=== PATIENT | male | born 1960 | race Caucasian/White ===

== ENCOUNTER 2016-12-13 06:34 | Inpatient (IN) ==
[2016-12-13] MEDS ORDERED: LR 1,000 ML ONE (07:05)
[2016-12-13] MEDS ORDERED: PEPCID ONE (07:05)
[2016-12-13] MEDS ORDERED: REGLAN ONE (07:05)
[2016-12-13] MEDS ORDERED: KEFZOL 2 GM/D5W 2 GM/50 ML IVPB ONE (07:05)
[2016-12-13] MEDS ORDERED: XYLOCAINE-MPF 2% ONE (09:00)
[2016-12-13] MEDS ORDERED: FENTANYL ONE ×2 (09:01→11:25)
[2016-12-13] MEDS ORDERED: VERSED ONE (09:01)
[2016-12-13] MEDS ORDERED: DIPRIVAN 1% ONE (09:02)
[2016-12-13] MEDS ORDERED: ZOFRAN ONE (11:11)
[2016-12-13] MEDS: DILAUDID ONE ×7 (12:30→13:23)
[2016-12-13] MEDS ORDERED: NS 1,000 ML ONE (12:44)
[2016-12-13] MEDS ORDERED: NORCO-10 ONE (14:05)
[2016-12-13] MEDS ORDERED: TORADOL ONE (14:05)
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
[2016-12-13] MEDS: NORCO-10 PO PRN ×2 (16:19→18:56)
[2016-12-13] MEDS: NS 1,000 ML IV SCH (17:00)
[2016-12-13] MEDS: LEVAQUIN PO SCH (18:13)
[2016-12-13] MEDS: KEFZOL 1 GM/D5W 1 GM/50 ML IVPB IV SCH (18:13)
[2016-12-13] MEDS: MORPHINE IV PRN ×2 (19:41→23:42)
[2016-12-13] MEDS ORDERED: NORCO-10 PO PRN (20:40)
[2016-12-13] MEDS ORDERED: PERCOCET-5 PO PRN (20:40)
[2016-12-13] MEDS: PERCOCET-10 PO PRN (21:05)
[2016-12-13] MEDS: KEFLEX PO SCH (21:05)
[2016-12-13] MEDS: PERIDEX MT SCH (21:06)
[2016-12-14] MEDS: PERCOCET-10 PO PRN ×6 (01:21→23:07)
[2016-12-14] MEDS: NS 1,000 ML IV SCH (01:22)
[2016-12-14] MEDS: KEFZOL 1 GM/D5W 1 GM/50 ML IVPB IV SCH ×5 (01:22→17:14)
[2016-12-14] MEDS: MORPHINE IV PRN ×5 (03:49→20:20)
[2016-12-14] MEDS ORDERED: PRILOSEC PO PRN (07:00)
[2016-12-14] MEDS: KEFLEX PO SCH ×5 (08:25→22:29)
[2016-12-14] MEDS: PERIDEX MT SCH ×3 (08:25→23:45)
--- NOTE | 2016-12-14 08:30 | PROGRESS NOTE ---
DATE: 12/14/2016 SUBJECTIVE DATA: The patient is lying in bed in no acute distress. He is complaining of some pain to the left foot. Otherwise, he is doing well. OBJECTIVE DATA: Vital Signs: Temp 98.7; he had no temperature last night. Respirations were 18, pulse is 85, blood pressure is 107/54. He is 96% on room air. Right lower extremity exam: The posterior splint is clean, dry, and intact. There is no obvious drainage. He does still have some erythema to the toes. He can wiggle the toes. He does have good sensation. ASSESSMENT: Status post pinning second and third toes and irrigation and debridement of the great toe. PLAN: We are going to check a CBC and BMP just to get a base lab work on Mr. Wesley. The culture did come back with gram-negative rods. He is currently on Levaquin which will cover the gram-negative rods. Tomorrow, we will take off his dressing and evaluate the surgical site. Dictated by DENNIS Bedoya for Benjamin Ortega MD cc: DENNIS Bedoya MD [facility]
[2016-12-14 08:40] LABS: AGAP 12; BUN 13 mg/dL (8-22); CALCIUM 8.4 mg/dL (8.8-10.2); CHLORIDE 97 mmol/L (98-107); COSMO 276; POTASSIUM 4.2 mmol/L (3.5-5.1); SODIUM 136 mmol/L (136-145); TCO2 27 mmol/L (25-35)
[2016-12-14] MEDS: LEVAQUIN PO SCH (16:34)
[2016-12-15] MEDS: KEFZOL 1 GM/D5W 1 GM/50 ML IVPB IV SCH ×4 (00:59→17:04)
[2016-12-15] MEDS: MORPHINE IV PRN (01:02)
[2016-12-15] MEDS: PERCOCET-10 PO PRN ×5 (03:12→21:03)
[2016-12-15 05:53] LABS: MANUAL DIFF NEEDED? NO
[2016-12-15 05:58] LABS: BASO% 0.1 % (0.0-0.8); EOS# 0.16 X1000 (0.0-0.7); EOS% 2.3 % (0.0-10.0); HEMATOCRIT 42.6 % (42.0-52.0); HEMOGLOBIN 14.1 g/dL (14.0-18.0); IMM GRAN# 0.03 X1000 (0.0-0.04); IMM GRAN% 0.4 % (0.0-0.5); LYMPH# 1.58 X1000 (1.2-3.4); LYMPH% 22.9 % (20.5-51.1); MCH 31.3 PG (27-31); MCHC 33.1 g/dL (33-37); MCV 94.7 FL (81-99); MONO# 0.74 X1000 (0.11-0.59); MONO% 10.7 % (1.7-9.3); MPV 10.7 FL (7.4-10.4); NEUT% 63.6 % (42.2-75.2); PLT 233 X1000 (130-400)
--- NOTE | 2016-12-15 07:50 | PROGRESS NOTE ---
DATE: 12/15/2016 SUBJECTIVE: Mr. Wesley is feeling a lot better today. The pain is a lot better, under control. He got a good night's rest last night. OBJECTIVE: Left lower extremity exam: Took the dressing down enough to look at that great toe laceration and erythema. The erythema looks a little better but it has not gone to the dorsum of the foot. Wound looks fine. Changed the Xeroform and 4 x 4s this morning. Pins looked good in the 2nd and 3rd toes. ASSESSMENT: Status post left great toe irrigation and debridement and pinning 2nd and 3rd toes. PLAN: I think Mr. Wesley is doing a lot better. I am going to keep him 1 more night to see if we can get that erythema little better and then we will plan on discharging him home on antibiotics tomorrow. cc: Benjamin Ortega MD
[2016-12-15] MEDS: KEFLEX PO SCH ×4 (08:57→21:03)
[2016-12-15] MEDS: PERIDEX MT SCH ×2 (08:57→21:03)
[2016-12-15] MEDS: LEVAQUIN PO SCH (17:03)
[2016-12-16] MEDS: PERCOCET-10 PO PRN ×5 (01:10→17:12)
[2016-12-16] MEDS: KEFZOL 1 GM/D5W 1 GM/50 ML IVPB IV SCH ×3 (01:13→10:32)
[2016-12-16] MEDS: PERIDEX MT SCH (08:11)
[2016-12-16] MEDS: KEFLEX PO SCH ×2 (08:11→12:33)
[2016-12-16 16:29] VITALS: BP 130/40
--- NOTE | 2016-12-25 07:54 | DISCHARGE SUMMARY ---
ADMISSION DATE: 12/13/2016 DISCHARGE DATE: 12/16/2016 SPECIMENS: Right second and 3rd toes pinning and irrigation and debridement great toe. HOSPITAL COURSE: Mr. Wesley was admitted after his procedure and he started getting IV antibiotics to cover the infection in the great toe. He was here a few days while all that was set up. His pain was under control. He was nonweightbearing left lower extremity. Once all his IV antibiotics were set up he was discharged home. He was discharged home on [place], cephalexin and Percocet. He will follow with me in about a week in clinic. cc: Benjamin Ortega MD
== END 2016-12-16 17:47 | disposition home or self-care (01) ==
LOC: OR 06:34 → SURHOLD 13:08 → 4N 14:18
PROVIDERS: ADMIT Orthopaedic Surgery; ATTEND Orthopaedic Surgery